=== PATIENT | female | born 2000 | race Caucasian/White ===

== ENCOUNTER 2023-01-22 01:43 | Inpatient (IN) | payer OTHER ==
[2023-01-22] MEDS ORDERED: Ondansetron PF 4 MG/2 ML Vial IVP PRN (02:18)
[2023-01-22] MEDS ORDERED: Carboprost 250 MCG/ML AMP IM PRN (02:18)
[2023-01-22] MEDS ORDERED: hydrALAZINE 20 MG/ML VIAL SLOW IVP PRN (02:18)
[2023-01-22] MEDS ORDERED: HYDROcodone/Acetaminophen 5/325 mg Tablet PO PRN (02:18)
[2023-01-22] MEDS ORDERED: Misoprostol 200 MCG TAB PR PRN (02:18)
[2023-01-22] MEDS ORDERED: fentaNYL 50 mcg/mL 1 mL Vial SLOW IVP PRN (02:18)
[2023-01-22] MEDS ORDERED: Diphenoxylate HCl/Atropine Tablet PO PRN (02:18)
[2023-01-22] MEDS ORDERED: Ibuprofen 800 MG TAB PO PRN (02:18)
[2023-01-22] MEDS ORDERED: Acetaminophen 500 MG TAB PO PRN (02:18)
[2023-01-22] MEDS ORDERED: Methylergonovine 0.2 MG/ML VIAL IM PRN (02:18)
[2023-01-22] MEDS ORDERED: Promethazine HCl 25 MG/ML VIAL IM PRN (02:18)
[2023-01-22] MEDS ORDERED: Lidocaine 1% (PF) 30 ML VIAL SC PRN (02:18)
[2023-01-22] MEDS ORDERED: Tranexamic Acid 1,000 MG/10 ML VIAL IVP PRN (02:18)
[2023-01-22 02:23] VITALS: BMI 28.5
[2023-01-22] MEDS ORDERED: Oxytocin 30 units/NS 500 ML 500 ML IV SCH ×3 (02:30)
[2023-01-22 03:54] LABS: Hematocrit 32.6 % (34.9-44.5); Hemoglobin 11.4 g/dL (12.0-15.5); Mean Corpuscular Hemoglobin 31.3 pg (27.0-33.0); Mean Corpuscular Volume 89.6 fl (81.6-98.3); Mean Platelet Volume 10.9 fl (7.4-10.4); Platelet Count 175 10x3/uL (150-450); RBC Distribution Width 13.6 % (11.5-14.5); Red Blood Cell (RBC) Count 3.64 10x6/uL (3.90-5.03); White Blood Cell (WBC) Count 8.5 10x3/uL (3.5-10.5)
[2023-01-22 04:05] LABS: HBSAg Index 0.14 S/CO (0-0.99); Hep B Surf Ag - L&D Non-Reactive S/CO (NonReactive); Syphilis Antibody Nonreactive (Nonreactive); Syphilis Antibody Index 0.05 S/CO (<1.00 Non-Reactive)
[2023-01-22] MEDS: Misoprostol 100 MCG TAB PO SCH ×4 (04:08→20:23)
[2023-01-22] MEDS: Lactated Ringer's 1,000 ML IV SCH ×3 (04:49→13:50)
[2023-01-23] MEDS: Misoprostol 100 MCG TAB PO SCH ×3 (00:54→01:10)
[2023-01-23] MEDS: Lactated Ringer's 1,000 ML IV SCH ×3 (00:54→05:47)
[2023-01-23] MEDS ORDERED: fentaNYL/Ropivacaine Epidural 100 ML ONE (05:33)
[2023-01-23] MEDS ORDERED: Lactated Ringer's 500 ML IV PRN (06:03)
[2023-01-23] MEDS ORDERED: diphenhydrAMINE 50 MG/ML VIAL IVP PRN (06:03)
[2023-01-23] MEDS ORDERED: Naloxone HCl 0.4 mg/ml Vial IVP PRN ×2 (06:03)
[2023-01-23] MEDS ORDERED: Moisturizing Cream (Eucerin) 113 GM JAR TOP PRN (06:03)
[2023-01-23] MEDS ORDERED: Ondansetron PF 4 MG/2 ML Vial IVP PRN ×2 (06:03→14:18)
[2023-01-23] MEDS ORDERED: Promethazine HCl 25 MG/ML VIAL IM PRN ×2 (06:03→14:18)
[2023-01-23] MEDS ORDERED: ePHEDrine Sulfate 50 MG/10 ML VIAL SLOW IVP PRN (06:03)
[2023-01-23] MEDS ORDERED: Acetaminophen 325 MG TAB PO PRN (06:03)
[2023-01-23] MEDS ORDERED: Communication Order-Pharmacy FS SCH (06:15)
[2023-01-23] MEDS ORDERED: fentaNYL 2 mcg/Ropivacaine 0.2% Epidural 100 ML CADD EPIDURAL SCH (06:15)
[2023-01-23] MEDS ORDERED: Bupivacaine 0.25% HCL 30 ML VIAL ONE (14:00)
[2023-01-23] MEDS ORDERED: diphenhydrAMINE 25 MG CAP PO PRN (14:18)
[2023-01-23] MEDS ORDERED: Benzocaine-Menthol 82.5 ML CAN TOP PRN (14:18)
[2023-01-23] MEDS ORDERED: hydrALAZINE 20 MG/ML VIAL SLOW IVP PRN (14:18)
[2023-01-23] MEDS ORDERED: Bisacodyl 10 MG SUPP PR PRN (14:18)
[2023-01-23] MEDS ORDERED: Lanolin Ointment 7 GM TUBE TOP PRN (14:18)
[2023-01-23] MEDS ORDERED: HYDROcodone/Acetaminophen 5/325 mg Tablet PO PRN (14:18)
[2023-01-23] MEDS ORDERED: Boostrix 0.5 ML (Tdap) VIAL (>/=7 yrs of age) IM ONE (14:18)
[2023-01-23] MEDS ORDERED: Milk Of Magnesia 30 ML UDCUP PO PRN (14:18)
[2023-01-23] MEDS: Ibuprofen 800 MG TAB PO SCH ×2 (14:58→22:08)
[2023-01-23] MEDS: Docusate 100 MG CAP PO SCH (22:08)
[2023-01-24] MEDS: Ibuprofen 800 MG TAB PO SCH ×3 (05:46→21:55)
[2023-01-24] MEDS: Ferrous Sulfate 325 MG TAB PO SCH ×3 (08:00→17:00)
[2023-01-24] MEDS: Prenatal Vitamin 1 TAB PO SCH (08:35)
[2023-01-24] MEDS: Docusate 100 MG CAP PO SCH ×2 (08:35→21:55)
[2023-01-25] MEDS: Ibuprofen 800 MG TAB PO SCH (05:20)
[2023-01-25 07:54] VITALS: BP 119/77; TEMP 98
[2023-01-25] MEDS: Docusate 100 MG CAP PO SCH (08:27)
[2023-01-25] MEDS: Prenatal Vitamin 1 TAB PO SCH (08:27)
[2023-01-25] MEDS: Ferrous Sulfate 325 MG TAB PO SCH (14:52)
== END 2023-01-25 14:35 | disposition home or self-care (01) | DRG 807 ==
LOC: CSHLD 01:43 → CSHPED 01-23 14:15
PROVIDERS: ADMIT Family Medicine; ATTEND Family Medicine
PROC: 3E0P7VZ Introduction of Hormone into Female Reproductive, Via Natural or Artificial Opening (ICD-10-PCS; 2023-01-22)
PROC: 10E0XZZ Delivery of Products of Conception, External Approach (ICD-10-PCS; principal; 2023-01-23)
PROC: 0UQGXZZ Repair Vagina, External Approach (ICD-10-PCS; 2023-01-23)
DX: O71.4 Obstetric high vaginal laceration alone (principal); Z37.0 Single live birth; Z3A.39 39 weeks gestation of pregnancy
CPT/HCPCS: 36415; 51702; 85027; 86780; 86850; 86900; 86901; 87340; J7120; S0020